=== PATIENT | female | born 1945 | race Caucasian/White ===

== ENCOUNTER 2021-02-05 08:08 | Emergency (ER) | payer MEDICARE, BC ==
--- NOTE | 2021-02-05 08:23 | EDM.PDOC ---
ED HPI GENERAL MEDICAL PROBLEM - General Chief Complaint: General Stated Complaint: Neck Pain s/p surgery Time Seen by Provider: 02/05/21 08:10 Source of Information: Reports: Patient, Family History Limitations: Reports: No Limitations - History of Present Illness INITIAL COMMENTS - FREE TEXT/NARRATIVE: Pt had surgery on Monday at [facility] for cervical neck pain. She had right anterior approach for decompression on c5-6 and C6-7. She had been doing well and then about 3 am she started to have pain on right side of neck that was going up into the right side of her neck and head to the top of her head. They did call [facility] and talked to Dr. Wesley and he recommended she comes to the ER and get CT scans done of cspine and head. She denies any weakness or pain down her arms. She states that she has not been lifting or bending. Did lift something off the freezer 02/03 but it did not cause any pain. She has not been taking her muscle relaxant on regular basis, did take 1 at 3:30 this morning along with her norco. She has been sleeping in a recliner and bed depending on which is most comfortable. Onset: Today Location: Reports: Head, Neck Severity: Severe r neck Pain Score (Numeric/FACES): 9 - Related Data Allergies Allergy/AdvReac Type Severity Reaction Status Date / Time Sulfa (Sulfonamide Allergy Cannot Verified 02/05/21 08:09 Antibiotics) Remember Home Meds: Home Meds Ascorbate Calcium [Vitamin C] 500 mg PO DAILY 06/26/14 [History] Cholecalciferol (Vitamin D3) [Vitamin D] 1 cap PO DAILY 06/26/14 [History] Milk Thistle 1 cap PO DAILY 06/26/14 [History] Multivitamin [Daily Multiple Vitamin] 1 tab PO DAILY 06/26/14 [History] Ox Bile 1 tab DAILY 06/26/14 [History] Cyclobenzaprine [Flexeril] 10 mg PO TID 02/05/21 [History] Docusate Sodium [Colace] 100 mg PO BID PRN 02/05/21 [History] Insulin Detemir [Levemir Flextouch] 14 unit SQ BEDTIME 02/05/21 [History] ursodioL [Ursodiol] 250 mg PO DAILY 02/05/21 [History] Past Medical History - History Comment History Comment: see RN notes for past medical, surgical ,family history Social & Family History - Tobacco Use Tobacco Use Status *Q: Never Tobacco User - Living Situation & Occupation Living situation: Reports: , with Spouse Occupation: Retired ED ROS GENERAL - Review of Systems Review Of Systems: See Below Constitutional: Denies: Fever, Chills HEENT: Denies: Ear Pain, Throat Pain, Throat Swelling Respiratory: Reports: No Symptoms Cardiovascular: Reports: No Symptoms GI/Abdominal: Reports: No Symptoms Musculoskeletal: Reports: Neck Pain Skin: Reports: Wound (right c spine) Neurological: Reports: Headache. Denies: Numbness, Tingling ED EXAM, GENERAL - Physical Exam Exam: See Below Exam Limited By: No Limitations General Appearance: Alert, WD/WN, Moderate Distress Ears: Normal External Exam, Normal Canal, Normal TMs Throat/Mouth: Normal Inspection, Normal Oropharynx, Normal Voice Head: Atraumatic, Normocephalic, Other Neck: Other (tender to the right side of neck that has surgical incision noted. NO drainage noted. Healing well. No swelling. Pain goes up the right side of neck and up the back of her neck to the top. ) Respiratory/Chest: No Respiratory Distress, Lungs Clear, Normal Breath Sounds Cardiovascular: Regular Rate, Rhythm, No Edema GI/Abdominal: Normal Bowel Sounds, Soft, Non-Tender Back Exam: Normal Inspection Neurological: Alert, Oriented, Normal Cognition Psychiatric: Normal Affect, Normal Mood Skin Exam: Warm, Dry, Intact Course - Vital Signs Last Recorded V/S: Last Vital Signs Temp 96.5 F L 02/05/21 08:09 Pulse 78 02/05/21 08:09 Resp 16 02/05/21 08:09 BP 150/63 H 02/05/21 08:09 Pulse Ox 98 02/05/21 08:09 - Orders/Labs/Meds Orders: Active Orders 24 hr Category Date Time Status Cervical Spine wo Cont [CT] Stat Exams 02/05/21 08:18 Taken Head wo Cont [CT] Stat Exams 02/05/21 08:18 Taken Meds: Medications Discontinued Medications Generic Name Dose Route Start Last Admin Trade Name Freq PRN Reason Stop Dose Admin Hydrocodone Bitart/Acetaminophen 2 tab 02/05/21 08:55 02/05/21 08:58 Acetaminophen/Hydrocodone 325-5 Mg Tab PO 02/05/21 08:56 2 tab ONETIME ONE Administration Orphenadrine Citrate 60 mg 02/05/21 08:55 02/05/21 08:58 Orphenadrine 60 Mg/2 Ml Inj IM 02/05/21 08:56 60 mg ONETIME ONE Administration - Re-Assessments/Exams Free Text/Narrative Re-Assessment/Exam: 02/05/[address]. Wesley who is road consultant for neurosurgery at [facility]. He states that as long as the CT is normal she can be discharged to use her muscle relaxants and pain meds as needed. Departure - Departure Time of Disposition: 10:09 Disposition: Home, Self-Care 01 Condition: Good Clinical Impression: Muscle spasms of neck, Post-op pain - Discharge Information *PRESCRIPTION DRUG MONITORING PROGRAM REVIEWED*: Not Applicable *COPY OF PRESCRIPTION DRUG MONITORING REPORT IN PATIENT BRIANNA: Not Applicable Referrals: Teodoro Pugh MD [Primary Care Provider] - Forms: ED Department Discharge Additional Instructions: use your muscle relaxants on routine basis for now use norco as needed Ice to neck recheck with any new concerns. Sepsis Event Note (ED) - Evaluation Sepsis Screening Result: No Definite Risk - Focused Exam Vital Signs: Vital Signs Temp Pulse Resp BP Pulse Ox 02/05/21 08:09 96.5 F L 78 16 150/63 H 98 - Problem List & Annotations (1) Muscle spasms of neck SNOMED Code(s): 330293069497 Code(s): M62.838 - OTHER MUSCLE SPASM Status: Acute Priority: High Current Visit: Yes (2) Post-op pain SNOMED Code(s): 678600683 Code(s): G89.18 - OTHER ACUTE POSTPROCEDURAL PAIN Status: Acute Priority: High Current Visit: Yes - Problem List Review Problem List Initiated/Reviewed/Updated: Yes - My Orders Last 24 Hours: My Active Orders 02/05/21 08:18 Cervical Spine wo Cont [CT] Stat Head wo Cont [CT] Stat - Assessment/Plan Last 24 Hours: My Active Orders 02/05/21 08:18 Cervical Spine wo Cont [CT] Stat Head wo Cont [CT] Stat
[2021-02-05] MEDS: Orphenadrine 60 MG/2 ML Inj IM ONE (08:58)
[2021-02-05] MEDS: Acetaminophen/HYDROcodone 325-5 MG Tab PO ONE (08:58)
[2021-02-05 10:35] VITALS: BP 138/75; PULSE 70
== END 2021-02-05 10:35 | disposition home or self-care (01) ==
LOC: CC.ED 08:08
DX: M62.838 Other muscle spasm (principal); Z88.2 Allergy status to sulfonamides
CPT/HCPCS: 70450; 72125; 96372; 99283-25; 99284; A9270-GY; J2360

== ENCOUNTER → 2021-07-23 | Day surgery (SDC) | payer MEDICARE, BC ==
[~2021-07-23] MED LIST: Lactated Ringers 1,000 ML IV SCH; Meperidine PF 25 MG/ML SDV IV ONE; Midazolam 1 MG/ML 2 ML SDV IV ONE
[2021-07-23 10:32] VITALS: BP 113/58; PULSE 77
--- NOTE | 2021-07-23 11:44 | OR ---
DATE OF OPERATION: 07/23/2021 PREOPERATIVE DIAGNOSIS: ALTERED BOWEL HABITS. POSTOPERATIVE DIAGNOSIS: ALTERED BOWEL HABITS. SURGEON: Sameer Quinteros MD PROCEDURE: FULL-LENGTH DIAGNOSTIC COLONOSCOPY. ANESTHESIA: Conscious sedation with 75 mg of Demerol, 4 mg of Versed with continuous O2 saturation monitoring and nurse assist. Sats remained above 90% for the entire procedure. COMPLICATIONS: None. SPECIMEN: None. FINDINGS: 1. Full-length diagnostic colonoscopy. 2. Very mild sigmoid diverticulosis. RECOMMENDATIONS: Followup colonoscopy on an as needed basis at this point. INDICATIONS: Patient had, I believe, a surgical procedure and ultimately had a lot of postop constipation. Dr. Pugh sent her for a diagnostic scope due to altered bowel habits. DESCRIPTION OF PROCEDURE: The patient was prepped and draped, placed in the left lateral decubitus position. A lubricated Olympus colonoscope was inserted and with ease advanced to the cecum. Direct visualization of ileocecal valve, appendiceal orifice, and intubation into the terminal ileum were all accomplished. The bowel prep was fine. Upon withdrawal of the scope, throughout the entire length of the colon, I could find no signs of any polyps, masses, ulceration, or bleeding sites. There were no vascular abnormalities or signs of colitis. Certainly, no obstructive lesions that I could find. This patient did have very mild diverticulosis of the sigmoid colon, otherwise, no abnormalities seen. The rectal vault was benign. Retroflexion showed no perianal lesions. Air was suctioned. Scope was removed without complication. CAROLYNE/LUDWIN /[id number]
== END ==
LOC: CC.SDS 08:26
PROVIDERS: ATTEND Family Medicine
DX: K57.30 Diverticulosis of large intestine without perforation or abscess without bleeding (principal)
CPT/HCPCS: J2175; J2250; J7120

== ENCOUNTER 2022-08-03 10:39 | Observation (INO) | payer MEDICARE, BC ==
[2022-08-03 11:29] LABS: CHLORIDE,CL 99 mEq/L (98-106); ESTIMATED GFR 90 mL/min (>=60); SODIUM,NA 134 mEq/L (136-145)
[2022-08-03] MEDS ORDERED: Aspirin 81 MG Tab.Chew PO ONE (11:31)
[2022-08-03 11:41] LABS: PTT,PARTIAL THROMBOPLSTIN TIME 22.9 SEC (23.2-32.3)
[2022-08-03 11:48] LABS: CORONAVIRUS COVID-19 NAA NEGATIVE (NEGATIVE); RESPIRATORY SYNCYTIAL VIR NAA POSITIVE (NEGATIVE)
[2022-08-03] MEDS ORDERED: Iopamidol 755 Mg/ML 100 ML Bottle IVPUSH ONE (12:08)
[2022-08-03 13:04] VITALS: PULSE 93
[2022-08-03 13:05] VITALS: BP 110/60
[2022-08-03] MEDS ORDERED: Ondansetron 4 MG/2 ML SDV IV PRN (14:24)
[2022-08-03] MEDS ORDERED: Ondansetron 4 MG Tab.DIS PO PRN (14:24)
[2022-08-03] MEDS ORDERED: Sodium Chloride 0.9% 10 ML Syringe FLUSH PRN (14:24)
[2022-08-03] MEDS ORDERED: Acetaminophen 325 MG Tab PO PRN (14:24)
[2022-08-03] MEDS ORDERED: Enoxaparin 40 MG/0.4 ML Syringe SUBCUT SCH (16:00)
[2022-08-03] MEDS ORDERED: guaiFENesin 200 MG Tab PO SCH (20:00)
== END 2022-08-03 16:15 ==
LOC: CC.ED 10:39 → CC.MS 14:04 → UNDOADMOB 14:04 → CC.MS 14:10
PROVIDERS: ADMIT Nurse Practitioner Family; ATTEND Nurse Practitioner Family
DX: R79.89 Other specified abnormal findings of blood chemistry (principal); R77.8 Other specified abnormalities of plasma proteins; B33.8 Other specified viral diseases; R06.02 Shortness of breath; E11.9 Type 2 diabetes mellitus without complications; N39.0 Urinary tract infection, site not specified; Z79.899 Other long term (current) drug therapy; Z79.82 Long term (current) use of aspirin; Z20.822 Contact with and (suspected) exposure to COVID-19; Z98.890 Other specified postprocedural states; Z88.2 Allergy status to sulfonamides
CPT/HCPCS: 0241U; 36415; 71046; 71275; 80053; 83880; 84484; 85025; 85379; 85610; 85730; 86140; 93005; 99285; A9270-GY; G0378; Q9967

== ENCOUNTER 2024-03-08 10:50 | Emergency (ER) | payer MEDICARE, BC ==
[2024-03-08] MEDS: Labetalol 20 MG/4 ML Syringe IVPUSH ONE (11:08)
[2024-03-08 11:19] VITALS: PULSE 71
[2024-03-08 11:20] LABS: BASOPHILS ABSOLUTE AUTO 0.03 10^3/uL (0.00-0.50); BASOPHILS PERCENT AUTO 0.5 % (0-1); EOSINOPHILS ABSOLUTE AUTO 0.11 10^3/uL (0.00-1.50); EOSINOPHILS PERCENT AUTO 1.7 % (0-6); HEMATOCRIT 39.2 % (37.0-47.0); HEMOGLOBIN 12.5 g/dL (12.0-16.0); IMMATURE GRAN ABSOLUTE AUTO 0.01 10^3/uL (0.00-0.49); IMMATURE GRAN PERCENT AUTO 0.2 % (0.0-4.9); LYMPHOCYTES ABSOLUTE AUTO 1.43 10^3/uL (0.60-5.00); LYMPHOCYTES PERCENT AUTO 22.7 % (24-44); MEAN CORPUSCULAR HEMOGLOBIN 31.9 pg (27.0-32.0); MEAN CORPUSCULAR HGB CONC 31.9 g/dL (32.0-36.0); MONOCYTES ABSOLUTE AUTO 0.18 10^3/uL (0.00-1.50); MONOCYTES PERCENT AUTO 2.9 % (0-10); NEUTROPHILS ABSOLUTE AUTO 4.55 x10^3/uL (1.80-8.00); PLATELET COUNT,PLT 178 10^3/uL (150-400); RED BLOOD CELL COUNT 3.92 x10^6/uL (4.00-5.50); WHITE BLOOD CELL COUNT,WBC 6.3 10^3/uL (4.0-11.0)
[2024-03-08 11:40] LABS: APPEARANCE,URINE CLEAR (CLEAR); BILIRUBIN,URINE NEGATIVE (NEGATIVE); COLOR,URINE YELLOW (YELLOW); GLUCOSE,URINE NEGATIVE (NEGATIVE); KETONES,URINE NEGATIVE (NEGATIVE); LEUKOCYTE ESTERASE,URINE TRACE (NEGATIVE); NITRITE,URINE NEGATIVE (NEGATIVE); OCCULT BLOOD,URINE NEGATIVE (NEGATIVE); PROTEIN,URINE NEGATIVE (NEGATIVE); UROBILINOGEN,URINE 0.2 EU/dL (0.2-1.0)
[2024-03-08 11:46] LABS: ALANINE AMINOTRANSFERASE,ALT 29 U/L (12-78); ALBUMIN 3.4 g/dL (3.4-5.0); ALKALINE PHOSPHATASE 147 U/L (46-116); ASPARTATE AMNIOTRANSFERASE,AST 31 U/L (15-37); BILIRUBIN TOTAL 0.5 mg/dL (0.0-1.0); BLOOD UREA NITROGEN,BUN 20 mg/dL (7-18); CALCIUM 9.9 mg/dL (8.4-10.1); CARBON DIOXIDE,CO2 27 mmol/L (21-32); CHLORIDE,CL 102 mEq/L (98-106); CREATININE 0.6 mg/dL (0.6-1.0); EST CRCL DRUG DOSING (CG) 59.25 mL/min; GLUCOSE RANDOM 199 mg/dL (75-99); MAGNESIUM 1.9 mg/dL (1.8-2.4); POTASSIUM,K 4.3 mEq/L (3.5-5.0); PROTEIN TOTAL,TP 7.5 g/dL (6.4-8.2); SODIUM,NA 138 mEq/L (136-145)
[2024-03-08 11:49] LABS: C-REACTIVE PROTEIN < 0.50 mg/dL (<=0.50); ESTIMATED GFR 92 mL/min (>=60)
[2024-03-08 11:55] LABS: BACTERIA,URINE OCCASIONAL /HPF (NOT SEEN); EPITHELIAL CELLS,URINE OCCASIONAL /HPF (NOT SEEN); RBC,URINE 0-5 /HPF (0-5)
[2024-03-08] MEDS: Iopamidol 755 Mg/ML 100 ML Bottle IVPUSH ONE (12:33)
[2024-03-08 14:50] VITALS: BP 154/77
== END 2024-03-08 14:49 | disposition home or self-care (01) ==
LOC: CC.ED 10:50
DX: I10 Essential (primary) hypertension (principal); E11.9 Type 2 diabetes mellitus without complications; Z88.2 Allergy status to sulfonamides; Z79.899 Other long term (current) drug therapy; Z79.82 Long term (current) use of aspirin; Z79.2 Long term (current) use of antibiotics
CPT/HCPCS: 36415; 71046; 71275; 80053; 81001; 83735; 84484; 85025; 85379; 86140; 93005; 96374; 99285-25; J1920; Q9967